=== PATIENT | male | born 1995 | race Caucasian/White ===

== ENCOUNTER → 2018-10-11 | Outpatient (CLI) | payer OTHER ==
[2018-10-12 01:03] LABS: Hemoglobin A1C 5.1 % (4.0-6.0)
== END | disposition home or self-care (01) ==
LOC: LABWHC1 16:35
PROVIDERS: ATTEND Psychiatry & Neurology Psychiatry
DX: F41.1 Generalized anxiety disorder (principal)
CPT/HCPCS: 36415; 80061; 82947; 83036

== ENCOUNTER → 2019-07-01 | Outpatient (CLI) | payer OTHER ==
--- NOTE | 2019-07-01 11:02 | XR ---
EXAMINATION TYPE: XR elbow limited RT DATE OF EXAM: 07/01/2019 CLINICAL HISTORY: Pain and limited movement for 3 weeks. TECHNIQUE: Frontal and lateral images of the right elbow are obtained. COMPARISON: None FINDINGS: There is no acute fracture/dislocation evident in the right elbow. Abnormal bowing anterio r fat pad without visualization of posterior fat pad. The overlying soft tissue appears unremarkable . IMPRESSION: Abnormal anterior fat pad raises concern for effusion. Consider orthopedic referral.
== END | disposition home or self-care (01) ==
LOC: RADXRMAIN 10:43
PROVIDERS: ATTEND Family Medicine
DX: E65 Localized adiposity (principal)

== ENCOUNTER 2021-08-12 20:37 | Emergency (ER) | payer OTHER ==
[2021-08-12 20:44] VITALS: TEMP 97.3
[2021-08-12 21:13] LABS: Appearance,Urine Clear (Clear); Bilirubin,Urine Negative (Negative); Blood,Urine Negative (Negative); Color,Urine Light Yellow; Glucose,Urine (UA) Negative (Negative); Ketones,Urine Negative (Negative); Leukocyte Esterase,Urine Negative (Negative); Nitrite,Urine Negative (Negative); PH, Urine 6.5 (5.0-8.0); Protein,Urine Negative (Negative); Specific Gravity,Urine 1.008 (1.001-1.035); Urobilinogen,Urine <2.0 mg/dL (<2.0)
[2021-08-12] MEDS ORDERED: SODIUM CHLORIDE 0.9% 1,000 ML IV STA (22:03)
[2021-08-12] MEDS ORDERED: ONDANSETRON 4 MG/2 ML VIAL IVP STA (22:03)
[2021-08-12] MEDS ORDERED: KETOROLAC 15 MG/ML 1 ML VIAL IVP STA (22:03)
--- NOTE | 2021-08-12 22:04 | ED ---
Abdominal Pain HPI - General Chief Complaint: Abdominal Pain Stated Complaint: Abdominal Pain Time Seen by Provider: 08/12/21 22:03 Source: patient, RN notes reviewed, old records reviewed Mode of arrival: ambulatory Limitations: no limitations - History of Present Illness Initial Comments: This is a 18-year-old male to the emergency department for evaluation. Patient's pain today for evaluation of abdominal pain. Patient is having at times periumbilical to right lower quadrant abdominal pain worse above his right pelvis area. Patient denies any nausea vomiting. No fevers. He was able to eat without significant discomfort did have a bowel movement today. No prior history of abdominal pain or abdominal surgery. Patient has no medications and has no medical problems patient has been going on for 5 days and progressively worse today MD Complaint: abdominal pain -: days(s) (5) Location: RLQ Radiation: RLQ Migration to: RLQ Severity: moderate Severity scale (1-10): 7 Quality: sharp Consistency: constant Improves With: nothing Worsens With: nothing Context: other (none) Associated Symptoms: nausea Treatments Prior to Arrival: other (none) - Related Data Home Medications Medication Instructions Recorded Confirmed traZODone HCL [traZODone] 100 mg PO HS 04/07/14 08/12/21 Desvenlafaxine Succinate [Pristiq 50 mg PO HS 07/22/14 08/12/21 ER] Allergies Allergy/AdvReac Type Severity Reaction Status Date / Time No Known Allergies Allergy Verified 08/12/21 22:19 Review of Systems ROS Statement: Those systems with pertinent positive or pertinent negative responses have been documented in the HPI. ROS Other: All systems not noted in ROS Statement are negative. Past Medical History Past Medical History: Seizure Disorder Additional Past Medical History / Comment(s): seizure at only/ hearing impaired both ears See Dr Marquez H&P for cardiac hx History of Any Multi-Drug Resistant Organisms: None Reported Past Surgical History: Ear Surgery Past Anesthesia/Blood Transfusion Reactions: No Reported Reaction Past Psychological History: Anxiety, Depression Smoking Status: Never smoker Past Alcohol Use History: None Reported Past Drug Use History: None Reported - Past Family History Mother Family Medical History: No Reported History General Exam Limitations: no limitations General appearance: alert, in no apparent distress Head exam: Present: atraumatic, normocephalic, normal inspection Eye exam: Present: normal appearance, PERRL, EOMI. Absent: scleral icterus, conjunctival injection, periorbital swelling ENT exam: Present: normal exam, mucous membranes moist Neck exam: Present: normal inspection. Absent: tenderness, meningismus, lymphadenopathy Respiratory exam: Present: normal lung sounds bilaterally. Absent: respiratory distress, wheezes, rales, rhonchi, stridor Cardiovascular Exam: Present: regular rate, normal rhythm, normal heart sounds. Absent: systolic murmur, diastolic murmur, rubs, gallop, clicks GI/Abdominal exam: Present: soft, tenderness (Right lower quadrant), guarding, normal bowel sounds. Absent: distended, rebound, rigid Extremities exam: Present: normal inspection, full ROM, normal capillary refill. Absent: tenderness, pedal edema, joint swelling, calf tenderness Back exam: Present: normal inspection Neurological exam: Present: alert, oriented X3, CN II-XII intact Psychiatric exam: Present: normal affect, normal mood Skin exam: Present: warm, dry, intact, normal color. Absent: rash Course Vital Signs 08/12/21 20:41 Temperature 97.3 F L Pulse Rate 100 Respiratory 20 Rate Blood Pressure 132/79 O2 Sat by Pulse 98 Oximetry - Reevaluation(s) Reevaluation #1: 08/12/21 23:13 Medical records reviewed Reevaluation #2: 08/12/21 23:13 Patient's pain is currently improved Reevaluation #3: 08/12/21 23:43 Patient informed results, questions are answered Medical Decision Making - Medical Decision Making 26 male to the emergency department for evaluation patient presents today for evaluation regards to abdominal pain right lower quadrant abdominal pain. Did have tenderness on exam with CT was negative for appendicitis. Lab values are otherwise normal aside from a mild transaminitis. Patient postictal liquid diet for 2 days nausea medication pain medication from a can be discharged - Lab Data Result diagrams: 08/12/21 22:40 08/12/21 22:40 Lab Results 08/12/21 08/12/21 08/12/21 Range/Units 21:05 22:40 22:40 WBC 9.4 (3.8-10.6) k/uL RBC 5.33 (4.30-5.90) m/uL Hgb 16.1 (13.0-17.5) gm/dL Hct 46.1 (39.0-53.0) % MCV 86.4 (80.0-100.0) fL MCH 30.2 (25.0-35.0) pg MCHC 34.9 (31.0-37.0) g/dL RDW 12.1 (11.5-15.5) % Plt Count 254 (150-450) k/uL MPV 7.4 Neutrophils % 66 % Lymphocytes % 22 % Monocytes % 6 % Eosinophils % 3 % Basophils % 1 % Neutrophils # 6.2 (1.3-7.7) k/uL Lymphocytes # 2.1 (1.0-4.8) k/uL Monocytes # 0.6 (0-1.0) k/uL Eosinophils # 0.3 (0-0.7) k/uL Basophils # 0.1 (0-0.2) k/uL Sodium 137 (137-145) mmol/L Potassium 3.7 (3.5-5.1) mmol/L Chloride 100 (98-107) mmol/L Carbon Dioxide 29 (22-30) mmol/L Anion Gap 8 mmol/L BUN 11 (9-20) mg/dL Creatinine 0.86 (0.66-1.25) mg/dL Est GFR (CKD-EPI)AfAm >90 (>60 ml/min/1.73 sqM) Est GFR (CKD-EPI)NonAf >90 (>60 ml/min/1.73 sqM) Glucose 108 H (74-99) mg/dL Calcium 9.7 (8.4-10.2) mg/dL Phosphorus 3.5 (2.5-4.5) mg/dL Magnesium 1.9 (1.6-2.3) mg/dL Total Bilirubin 1.0 (0.2-1.3) mg/dL AST 83 H (17-59) U/L ALT 190 H (4-49) U/L Alkaline Phosphatase 91 (38-126) U/L C-Reactive Protein 0.5 (<1.0) mg/dL Total Protein 7.6 (6.3-8.2) g/dL Albumin 4.5 (3.5-5.0) g/dL Amylase 42 (30-110) U/L Lipase 47 (23-300) U/L Urine Color Light Yellow Urine Appearance Clear (Clear) Urine pH 6.5 (5.0-8.0) Ur Specific [place] 1.008 (1.001-1.035) Urine Protein Negative (Negative) Urine Glucose (UA) Negative (Negative) Urine Ketones Negative (Negative) Urine Blood Negative (Negative) Urine Nitrite Negative (Negative) Urine Bilirubin Negative (Negative) Urine Urobilinogen <2.0 (<2.0) mg/dL Ur Leukocyte Esterase Negative (Negative) - Radiology Data Radiology results: report reviewed (CT abdomen and pelvis is negative for acute disease), image reviewed Disposition Clinical Impression: Abdominal pain, Gastroenteritis Disposition: HOME SELF-CARE Condition: Good Instructions (If sedation given, give patient instructions): Abdominal Pain (ED) Is patient prescribed a controlled substance at d/c from ED?: No Referrals: Rodrick Day DO [Primary Care Provider] - 1-2 days
--- NOTE | 2021-08-12 22:34 | XR ---
EXAMINATION TYPE: XR KUB DATE OF EXAM: 08/12/2021 COMPARISON: NONE HISTORY: Abdominal pain TECHNIQUE: 2 views upright FINDINGS: Bowel gas pattern is normal. There is no sign of intestinal obstruction or pneumoperitoneum . Fecal pattern is normal. There are no pathologic calcifications. IMPRESSION: Nonacute abdomen.
[2021-08-12 22:48] LABS: Basophils # (A) 0.1 k/uL (0-0.2); Basophils % (A) 1 %; Eosinophils # (A) 0.3 k/uL (0-0.7); Eosinophils % (A) 3 %; HCT 46.1 % (39.0-53.0); HGB 16.1 gm/dL (13.0-17.5); Lymphocytes # (A) 2.1 k/uL (1.0-4.8); Lymphocytes % (A) 22 %; MCH 30.2 pg (25.0-35.0); MCHC 34.9 g/dL (31.0-37.0); MCV 86.4 fL (80.0-100.0); Mean Platelet Volume 7.4; Monocytes # (A) 0.6 k/uL (0-1.0); Monocytes % (A) 6 %; Neutrophils # (A) 6.2 k/uL (1.3-7.7); Neutrophils % (A) 66 %; Platelet Count 254 k/uL (150-450); RBC 5.33 m/uL (4.30-5.90); RDW 12.1 % (11.5-15.5); WBC 9.4 k/uL (3.8-10.6)
[2021-08-12 22:59] LABS: ALT 190 U/L (4-49); AST 83 U/L (17-59); African American GFR (CKD) >90 (>60 ml/min/1.73 sqM); Albumin 4.5 g/dL (3.5-5.0); Alkaline Phosphatase 91 U/L (38-126); Amylase 42 U/L (30-110); Anion Gap 8 mmol/L; Blood Urea Nitrogen 11 mg/dL (9-20); C Reactive Protein 0.5 mg/dL (<1.0); Calcium 9.7 mg/dL (8.4-10.2); Carbon Dioxide 29 mmol/L (22-30); Chloride 100 mmol/L (98-107); Glucose 108 mg/dL (74-99); Lipase 47 U/L (23-300); Magnesium 1.9 mg/dL (1.6-2.3); Non-African American GFR(CKD) >90 (>60 ml/min/1.73 sqM); Phosphorus 3.5 mg/dL (2.5-4.5); Potassium 3.7 mmol/L (3.5-5.1); Sodium 137 mmol/L (137-145); Total Protein 7.6 g/dL (6.3-8.2)
--- NOTE | 2021-08-12 23:13 | CT ---
EXAMINATION TYPE: CT abdomen pelvis w con DATE OF EXAM: 08/12/2021 COMPARISON: None HISTORY: rlq pain CT DLP: 1134.7 mGycm Automated exposure control for dose reduction was used. CONTRAST: Performed with IV Contrast, patient injected with 100 mL of Isovue 300. Images obtained from the diaphragm to the floor the pelvis with IV contrast. Lung bases show minimal subsegmental atelectasis. There is no pleural effusion. Heart size is normal. There is no pericardial effusion. Liver spleen pancreas stomach gallbladder appear normal. The bile ducts are not dilated. There is no adrenal mass. Kidneys show satisfactory contrast opacification. There is no hydronephrosi s. Ureters are not dilated. There is no retroperitoneal adenopathy. Appendix is posterior and appears normal. There is 2 cm fat-containing umbilical hernia. Bladder distends smoothly. There is no inguin al hernia. There is no evidence of a pelvic mass. There is no mesenteric edema. There is no ascites or free air. There is no bowel obstruction. Lumbar vertebrae have normal alignment. Posterior elements are intact. There is no compression fractu re. The hip joints are intact. Sacroiliac joints are intact. IMPRESSION: Normal appendix. No acute abnormality of the abdomen and pelvis. Negative exam.
[2021-08-12] MEDS ORDERED: IBUPROFEN 600 MG STARTER PACK 4 TAB BTL PO STA (23:42)
[2021-08-12] MEDS ORDERED: ONDANSETRON 4 MG ODT STARTER PACK 2 TAB BTL PO STA (23:42)
[2021-08-13 00:15] VITALS: BP 145/59; PULSE 78; RESP 17
== END 2021-08-13 00:14 | disposition home or self-care (01) ==
LOC: EC 20:37
DX: K52.9 Noninfective gastroenteritis and colitis, unspecified (principal); F41.9 Anxiety disorder, unspecified; F32.A Depression, unspecified
CPT/HCPCS: 99284; 96374; 96375; 96361 ×2; 36415; 80053; 82150; 83690; 83735; 84100; 85025; 86140; 81003; 74018; 74177; J2405; J1885; Q9967

== ENCOUNTER 2022-11-22 01:14 | Inpatient (IN) | payer MEDICAID, OTHER ==
--- NOTE | 2022-11-22 02:24 | ED ---
Psych HPI - General Chief Complaint: Psychiatric Symptoms Stated Complaint: Suicide,Mental Health Time Seen by Provider: 11/22/22 01:32 Source: patient Mode of arrival: ambulatory Limitations: no limitations - History of Present Illness Initial Comments: This patient is 27-year-old man who presents with complaint that he is having severe depression and suicidal ideation MD Complaint: suicidal ideation, feels depressed -: week(s) Associated Psychiatric Symptoms: depression, suicidal ideation History of same: Yes Quality: getting worse Improves With: none Associated Symptoms: denies other symptoms - Related Data Previous Rx's Medication Instructions Recorded DULoxetine HCL [Cymbalta] 60 mg PO HS 30 Days #30 cap 11/25/22 traZODone HCL [Desyrel] 100 mg PO HS 30 Days #30 tab 11/25/22 Allergies Allergy/AdvReac Type Severity Reaction Status Date / Time No Known Allergies Allergy Verified 11/22/22 06:54 Review of Systems ROS Statement: Those systems with pertinent positive or pertinent negative responses have been documented in the HPI. ROS Other: All systems not noted in ROS Statement are negative. Constitutional: Denies: fever Respiratory: Denies: cough, dyspnea Cardiovascular: Denies: chest pain, palpitations Gastrointestinal: Denies: abdominal pain, vomiting Genitourinary: Denies: dysuria, hematuria Musculoskeletal: Denies: back pain Skin: Denies: rash Neurological: Denies: headache, weakness Psychiatric: Reports: depression, suicidal thoughts. Denies: auditory hallucinations, visual hallucinations, homicidal thoughts Past Medical History Past Medical History: Seizure Disorder Additional Past Medical History / Comment(s): seizure at only/ hearing impaired both ears See Dr Marquez H&P for cardiac hx History of Any Multi-Drug Resistant Organisms: None Reported Past Surgical History: Ear Surgery Past Anesthesia/Blood Transfusion Reactions: No Reported Reaction Past Psychological History: Anxiety, Depression Smoking Status: Never smoker Past Alcohol Use History: None Reported Past Drug Use History: None Reported - Past Family History Mother Family Medical History: No Reported History General Exam Limitations: no limitations General appearance: alert, in no apparent distress Head exam: Present: atraumatic, normocephalic Eye exam: Present: normal appearance. Absent: scleral icterus, conjunctival injection Neck exam: Present: normal inspection Respiratory exam: Present: normal lung sounds bilaterally. Absent: respiratory distress, wheezes, rales, rhonchi, stridor Cardiovascular Exam: Present: regular rate, normal rhythm, normal heart sounds. Absent: systolic murmur, diastolic murmur, rubs, gallop GI/Abdominal exam: Present: soft. Absent: distended, tenderness, guarding, rebound, rigid Extremities exam: Present: normal inspection, normal capillary refill. Absent: pedal edema, calf tenderness Back exam: Present: normal inspection Neurological exam: Present: alert, normal gait Psychiatric exam: Present: depressed, flat affect, suicidal ideation. Absent: agitated, anxious, homicidal ideation Skin exam: Present: warm, dry, intact, normal color. Absent: rash Course Vital Signs 11/22/22 11/22/22 01:25 06:27 Temperature 98.4 F Pulse Rate 96 Respiratory 16 20 Rate Blood Pressure 137/83 O2 Sat by Pulse 98 Oximetry Medical Decision Making - Medical Decision Making Was pt. sent in by a medical professional or institution (Dr. PA, WELLNESS PROGRAM COORDINATOR, urgent care, hospital, or retirement...) When possible be specific @ -[No] Did you speak to anyone other than the patient for history (EMS, parent, family, police, friend...)? What history was obtained from this source @ -[No] Did you review nursing and triage notes (agree or disagree)? Why? @ -[I reviewed and agree with nursing and triage notes] Were old charts reviewed (outside hosp., previous admission, EMS record, old EKG, old radiological studies, urgent care reports/EKG's, retirement records)? Report findings @ -[No old charts were reviewed] Differential Diagnosis (chest pain, altered mental status, abdominal pain women, abdominal pain men, vaginal bleeding, weakness, fever, dyspnea, syncope, headache, dizziness, GI bleed, back pain, seizure, CVA, palpatations, mental health, musculoskeletal)? @ -[Differential Mental Health Depression, anxiety, bipolar, psychosis, schizophrenia, borderline personality, situational depression, adjustment disorder, behavioral disorder, brain tumor, malingering, substance abuse, encephalopathy, medication reaction, dementia, hypothyroidism, degenerative neurologic disorder, lupus.... This is not meant to be all-inclusive list EKG interpreted by me (3pts min.). @ -[ X-rays interpreted by me (1pt min.). @ -[None done] CT interpreted by me (1pt min.). @ -[None done] U/S interpreted by me (1pt. min.). @ -[None done] What testing was considered but not performed or refused? (CT, X-rays, U/S, labs)? Why? @ -[None] What meds were considered but not given or refused? Why? @ -[None] Did you discuss the management of the patient with other professionals (professionals i.e. , PA, WELLNESS PROGRAM COORDINATOR, lab, RT, psych nurse, dialysis social worker, principal bioinformatics specialist, teacher, property disposal officer, case sealer)? Give summary @ -[Case discussed with EPS personnel who after discussing with the psychiatrist will admit for further inpatient psychiatric care Was smoking cessation discussed for >3mins.? @ -[No] Was critical care preformed (if so, how long)? @ -[No] Were there social determinants of health that impacted care today? How? (Homelessness, low income, unemployed, alcoholism, drug addiction, transportation, low edu. Level, literacy, decrease access to med. care, skilled nursing, rehab)? @ -[No] Was there de-escalation of care discussed even if they declined (Discuss DNR or withdrawal of care, Hospice)? DNR status @ -[No] What co-morbidities impacted this encounter? (DM, HTN, Smoking, COPD, CAD, Cancer, CVA, ARF, Chemo, Hep., AIDS, mental health diagnosis, sleep apnea, morbid obesity)? @ -[None] Was patient admitted / discharged? Hospital course, mention meds given and route, prescriptions, significant lab abnormalities, going to OR and other pertinent info. @ -[Admitted, as above Undiagnosed new problem with uncertain prognosis? @ -[No] Drug Therapy requiring intensive monitoring for toxicity (Heparin, Nitro, Insulin, Cardizem)? @ -[No] Were any procedures done? @ -[No] Diagnosis/symptom? @ -[Mood disorder, acute, with suicidal ideation Acute, or Chronic, or Acute on Chronic? @ -[default] Uncomplicated (without systemic symptoms) or Complicated (systemic symptoms)? @ -[uncomplicated Side effects of treatment? @ -[No] Exacerbation, Progression, or Severe Exacerbation? @ -[No] Poses a threat to life or bodily function? How? (Chest pain, [place], [place], pneumonia, PE, COPD, DKA, ARF, appy, cholecystitis, CVA, Diverticulitis, Homicidal, Suicidal, threat to staff... and all critical care pts) @ -[yes, of been treated this may progress to suicide attempt/ - Lab Data Result diagrams: 11/23/22 07:27 11/23/22 07:27 Lab Results 11/22/22 Range/Units 02:02 Coronavirus (PCR) Not Detected (Not Detectd) Disposition Clinical Impression: Mood disorder, Suicidal ideation Disposition: ADMITTED IP TO THIS HOSP Condition: Stable Is patient prescribed a controlled substance at d/c from ED?: No
[2022-11-22] MEDS ORDERED: MAG HYDROX/AL HYDROX/SIMETH 30 ML CUP PO PRN (05:55)
[2022-11-22] MEDS ORDERED: ACETAMINOPHEN TAB 325 MG TAB PO PRN (05:55)
[2022-11-22] MEDS ORDERED: MAGNESIUM HYDROXIDE 2,400 MG/10 ML CUP PO PRN (05:55)
[2022-11-22] MEDS ORDERED: LORazepam 1 MG TAB PO PRN (05:59)
[2022-11-22] MEDS ORDERED: LORazepam 2 MG/ML INJ IM PRN (05:59)
[2022-11-22] MEDS ORDERED: HALOPERIDOL LACTATE 5 MG/ML 1 ML VIAL IM PRN (06:00)
[2022-11-22] MEDS ORDERED: DULoxetine HCL 60 MG CAPSULE.DR PO SCH (09:00)
--- NOTE | 2022-11-22 12:19 | P.CONS ---
History of Present Illness - Reason for Consult Medical clearance - History of Present Illness 27-year-old male admitted the for psychiatric issues. I'm unable to interview the patient has patient is drowsy unable arousable but doesn't give me any history. REVIEW OF SYSTEMS: Unable to obtain PHYSICAL EXAMINATION: GENERAL: The patient is sleepy, not in any acute distress. Well developed, well nourished. HEENT: Pupils are round and equally reacting to light. EOMI. No scleral icterus. No conjunctival pallor. Normocephalic, atraumatic. No pharyngeal erythema. No thyromegaly. CARDIOVASCULAR: S1 and S2 present. No murmurs, rubs, or gallops. PULMONARY: Chest is clear to auscultation, no wheezing or crackles. ABDOMEN: Soft, nontender, nondistended, normoactive bowel sounds. No palpable organomegaly. MUSCULOSKELETAL: No joint swelling or deformity. EXTREMITIES: No cyanosis, clubbing, or pedal edema. NEUROLOGICAL: Gross neurological examination did not reveal any focal deficits. SKIN: No rashes. Assessment and plan -Acute psychosis management as per primary service seizure disorder patient is not on any antiseizure medications and no further history is available at this time Past Medical History Past Medical History: Seizure Disorder Additional Past Medical History / Comment(s): seizure at only/ hearing impaired both ears See Dr Marquez H&P for cardiac hx History of Any Multi-Drug Resistant Organisms: None Reported Past Surgical History: Ear Surgery Past Anesthesia/Blood Transfusion Reactions: No Reported Reaction Past Psychological History: Anxiety, Depression Smoking Status: Never smoker Past Alcohol Use History: None Reported Past Drug Use History: None Reported - Past Family History Mother Family Medical History: No Reported History Medications and Allergies Home Medications Medication Instructions Recorded Confirmed Type traZODone HCL [traZODone] 100 mg PO HS 04/07/14 08/12/21 History Desvenlafaxine Succinate [Pristiq 50 mg PO HS 07/22/14 08/12/21 History ER] Allergies Allergy/AdvReac Type Severity Reaction Status Date / Time No Known Allergies Allergy Verified 11/22/22 06:54 Physical Exam Vitals: Vital Signs Temp Pulse Pulse Resp BP BP Pulse Ox 11/22/22 06:57 97.9 F 87 15 133/89 96 11/22/22 06:27 20 11/22/22 01:25 98.4 F 96 16 137/83 98 Intake and Output 11/21/22 11/22/22 11/22/22 22:59 06:59 14:59 Other: Weight 90.917 kg
--- NOTE | 2022-11-22 12:57 | P.HP ---
Psychiatric H&P - . H&P Date: 11/22/22 History & Physical: Allergies Allergy/AdvReac Type Severity Reaction Status Date / Time No Known Allergies Allergy Verified 11/22/22 06:54 Vital Signs Temp 97.9 F 11/22/22 06:57 Pulse 87 11/22/22 06:57 Resp 15 11/22/22 06:57 BP 133/89 11/22/22 06:57 Pulse Ox 96 11/22/22 06:57 FiO2 Intake & Output 11/21/22 11/22/22 11/22/22 18:59 06:59 18:59 Weight 90.917 kg Laboratory Last Values Coronavirus (PCR) Not Detected (Not Detectd) 11/22/22 02:02 11/22/22 12:53 Psychiatric evaluation: This is a 27-year-old male who is currently hospitalized on the psychiatric unit for depression and anxiety and suicidal ideations No other specific details are available at this time No family members are available at this time An attempt was made to evaluate the patient when he was sleeping soundly. Patient was unarousable and uncooperative Patient woke up for a second and then went back to sleep and declined to answer any questions We will evaluate the patient and awake Past history personal and social history: Unable to assess Mental status examination: Unable to assess Diagnostic impression: Major depressive disorder by history Alcohol use disorder by history Stimulant/spice use disorder by history Plan: Patient was evaluated min weight Patient is currently hospitalized for further evaluation and treatment Patient will participate in on the [place] activities individual milieu group OT RT PT and pharmacotherapy The staff will continue to monitor the patient for any behavioral issues and the paternal supervision for safety Ativan and Haldol PRN for agitation/aggression -Internal Medicine consult to perform medical evaluation and physical. -NRT - nicotine patch -SW on board for discharge planning. Encourage patient to participate in groups to work on coping skills. patient is refusing rehab at this time. Roc Austin M.D. 11/22/2022
[2022-11-22] MEDS: traZODone HCL 100 MG TAB PO SCH (22:23)
[2022-11-23 06:53] VITALS: RESP 16
[2022-11-23] MEDS: DULoxetine HCL 60 MG CAPSULE.DR PO SCH ×2 (07:36→21:56)
[2022-11-23 07:49] LABS: Basophils % (A) 1 %; Eosinophils # (A) 0.3 k/uL (0-0.7); Eosinophils % (A) 3 %; HGB 15.8 gm/dL (13.0-17.5); Lymphocytes # (A) 2.5 k/uL (1.0-4.8); Lymphocytes % (A) 28 %; MCHC 33.6 g/dL (31.0-37.0); MCV 86.4 fL (80.0-100.0); Mean Platelet Volume 7.3; Monocytes # (A) 0.5 k/uL (0-1.0); Monocytes % (A) 6 %; Neutrophils # (A) 5.4 k/uL (1.3-7.7); Neutrophils % (A) 61 %; Platelet Count 313 k/uL (150-450); RBC 5.44 m/uL (4.30-5.90); RDW 12.4 % (11.5-15.5); WBC 8.9 k/uL (3.8-10.6)
[2022-11-23 08:12] LABS: ALT 90 U/L (4-49); AST 40 U/L (17-59); African American GFR (CKD) >90 (>60 ml/min/1.73 sqM); Albumin 4.7 g/dL (3.5-5.0); Alkaline Phosphatase 92 U/L (38-126); Anion Gap 10 mmol/L; Bilirubin, Delta 0.1 mg/dL (0.0-0.2); Bilirubin,Unconjugated 0.7 mg/dL (0.0-1.1); Blood Urea Nitrogen 11 mg/dL (9-20); Carbon Dioxide 28 mmol/L (22-30); Chloride 103 mmol/L (98-107); Glucose 106 mg/dL (74-99); Non-African American GFR(CKD) >90 (>60 ml/min/1.73 sqM); Potassium 3.9 mmol/L (3.5-5.1); Sodium 141 mmol/L (137-145); Total Bilirubin 0.8 mg/dL (0.2-1.3); Total Protein 7.6 g/dL (6.3-8.2)
--- NOTE | 2022-11-23 10:22 | P.PN ---
Subjective Progress Note Date: 11/23/22 Principal diagnosis: Major depressive disorder unspecified Personality disorder unspecified Subjective data: The patient says that he is of [place] descent and that his last name literally means a glove He states that he is unhappy with his name Also reports that he lives in a household 05 people that includes his mother stepfather and 2 siblings but that he always feels alone He states that he spends most of his time playing video games or reading Patient says that he does not work and did not give any reasons for not trying reports that he has loss of hearing in one of the year and that he was in special ed classes although he does not know if it was for hearing impaired or 4 in the intellectual abilities However he states that he did finish his high school patient denies any alcohol or substance use He admits that he was thinking about killing himself and that he had several different plans and ideas He denies any previous suicide attempts MENTAL STATUS EXAM: General Appearance: Patient appears disheveled and dirty patient was pleasant during the interview Behavior: Patient cooperative Speech: Patient's speech is fluent and nonpressured. Patient is highly sensitive due to his hearing problem and is distracted by any noise Mood/Affect: Patient reports his mood is anxious Suicidality/Homicidality: Patient denies having any homicidal ideation intent or plan. Denies any suicidal ideations intent or plan Perceptions: Patient denies any visual hallucinations and denies any auditory hallucinations Though content/process: There is no evidence of any delusional thought content and thought process is linear and goal-directed. Memory and concentration: AOX3, grossly intact for the purposes of this session. Judgment and insight: Impaired an impaired Diagnostic impression: Major depressive disorder chronic with acute exacerbation Rule out pervasive persistent depressive disorder/dysthymia Rule out personality disorder unspecified Management: Patient is willing to participate in on the [place] activities individual milieu group OT RT PT and pharmacotherapy As for his medications: Patient will be continued on his Cymbalta and trazodone as prescribed -Ativan and Haldol PRN for agitation/aggression thiamine, MVM for etoh use -Patient was informed of the risks, benefits and side effects of the medication and patient verbally consented to taking the medications. Patient signed med consent form and was placed in chart. -Internal Medicine consult to perform medical evaluation and physical. -SW on board for discharge planning. Encourage patient to participate in groups to work on coping skills. patient is refusing rehab at this time. claudia roahc MD 11/23/22 Objective - Vital Signs Vital signs: Vital Signs Temp 97.5 F L 11/23/22 06:52 Pulse 75 11/23/22 06:52 Resp 16 11/23/22 06:52 BP 110/55 11/23/22 06:52 Pulse Ox 96 11/22/22 06:57 FiO2 Intake & Output 11/22/22 11/23/22 11/23/22 18:59 06:59 18:59 Weight 89.9 kg - Labs CBC & Chem 7: 11/23/22 07:27 11/23/22 07:27 Labs: Abnormal Lab Results - Last 24 Hours (Table) 11/23/22 Range/Units 07:27 Glucose 106 H (74-99) mg/dL ALT 90 H (4-49) U/L
[2022-11-23] MEDS: traZODone HCL 100 MG TAB PO SCH (21:56)
--- NOTE | 2022-11-24 11:11 | P.PN ---
Progress Note - Text Progress Note Date: 11/24/22 Interval History: Patient was seen in group and was directable and agreeable to speak with typewriter repairer in the office. Currently, the patient is not reporting any suicidal or homicidal ideation, intention, and/or plan. He is not reporting any auditory or visual hallucinations. He denies any paranoia or delusions. The patient reports that he has been feeling more depressed lately after his dog had to be put down last Thursday. He is however stating that he is starting to feel better and that the medications appear to be helping along with milieu activities. The patient does describe a history of self-injurious behavior however is currently denying any traits of borderline personality disorder. He has been adherent with his medications and is not endorsing any significant side effects. He reports no medical issues or concerns. Mental Status Exam: General Appearance: Patient appears to be stated age is alert, directable, and cooperative. Patient has unkempt hair and hill. He is carrying with him an [email or web address] love craft book. Behavior: Patient is calmly seated without any agitated behavior. Speech: Patient's speech is fluent and nonpressured. Mood/Affect: Mood is improving mildly, affect is congruent and constricted. Suicidality/Homicidality: Patient denies having any suicidal or homicidal ideation intent or plan. Perceptions: Patient denies any visual hallucinations and denies any auditory hallucinations Though content/process: There is no evidence of any delusional thought content and thought process is linear and goal-directed. Memory and concentration: AOX3, grossly intact for the purposes of this session Judgment and insight: Improving mildly Vital Signs Temp 98 F 11/24/22 06:15 Pulse 97 11/24/22 06:15 Resp 16 11/24/22 06:15 BP 122/74 11/24/22 06:15 Pulse Ox 96 11/22/22 06:57 FiO2 Intake & Output 11/23/22 11/24/22 11/24/22 18:59 06:59 18:59 Weight 89.9 kg Laboratory Results - Last 24 Hours 11/23/22 07:[address] Glu mg/dL 120 Hemoglobin A1c 5.8 Assessment Major depressive disorder, recurrent, severe Alcohol use disorder Stimulant use disorder Other psychoactive substance use Plan: -Patient continues to meet criteria for inpatient psychiatric admission for symptom stabilization and safety. Patient has signed adult voluntary form and medication consent and was placed in patient's chart. -Medications: Cymbalta 60 mg by mouth at bedtime for depression Trazodone 100 mg by mouth at bedtime for insomnia -When necessary Ativan and Haldol for agitation/aggression. -SW on board for discharge planning. Encouraged the patient to participate in milieu.
[2022-11-24 13:29] LABS: Chol/HDL Ratio 6.66 Ratio; LDL Cholesterol,Calculated 143.7 mg/dL
[2022-11-24] MEDS: DULoxetine HCL 60 MG CAPSULE.DR PO SCH (20:54)
[2022-11-24] MEDS: traZODone HCL 100 MG TAB PO SCH (20:54)
[2022-11-25 06:39] VITALS: BP 119/65; PULSE 86; TEMP 98.1
--- NOTE | 2022-11-25 11:57 | P.DS ---
Providers Date of admission: 11/22/22 05:53 Expected date of discharge: 11/25/22 Attending physician: Abraham Valencia MD Consults: 11/22/22 05:55 Consult Physician Routine Consulting Provider: Becka Bernal Consult Reason/Comments: For H & P for Medical Follow Up Do you want consulting provider notified?: Yes, Notify in am Primary care physician: Rodrick Day - Discharge Diagnosis(es) (1) Major depressive disorder, recurrent severe without psychotic features Current Visit: Yes Status: Acute Priority: High (2) Alcohol use disorder Current Visit: Yes Status: Chronic Priority: Medium (3) Stimulant use disorder Current Visit: Yes Status: Chronic Priority: Medium (4) Other psychoactive substance abuse, uncomplicated Current Visit: Yes Status: Chronic Priority: Medium Hospital Course: Admission HPI: From Dr Austin on 11/22/2022: Psychiatric evaluation: This is a 27-year-old male who is currently hospitalized on the psychiatric unit for depression and anxiety and suicidal ideations No other specific details are available at this time No family members are available at this time An attempt was made to evaluate the patient when he was sleeping soundly. Patient was unarousable and uncooperative Patient woke up for a second and then went back to sleep and declined to answer any questions We will evaluate the patient and awake From 11/23/2022: Also reports that he lives in a household 05 people that includes his mother stepfather and 2 siblings but that he always feels alone He states that he spends most of his time playing video games or reading Patient says that he does not work and did not give any reasons for not trying reports that he has loss of hearing in one of the year and that he was in special ed classes although he does not know if it was for hearing impaired or 4 in the intellectual abilities However he states that he did finish his high school patient denies any alcohol or substance use He admits that he was thinking about killing himself and that he had several different plans and ideas He denies any previous suicide attempts Hospital course: Upon admission to the unit patient was initially uncooperative and remain primarily isolative and sedated in his room. Patient was however directable and agreeable to commence treatment. Patient got along well with other patients on the unit and followed unit protocol. Patient was compliant with the medications and denied any side effects throughout hospital course. Patient was started on Cymbalta and trazodone for depression. Patient spoke of his stressors and engag ed in therapy both group and individual. Patient was also seen by medical team for history and physical exam. Throughout the course of the hospitalization patient gradually improved with regards to mood and sleep and became future oriented with improved insight and judgment. On the day of discharge patient denied any suicidal or homicidal ideations intent or plan denied any auditory or visual hallucinations. Patient endorsed wanting to live for his health and family. The patient denied any access to guns or weapons as his family was able to confirm that they locked up the firearms in the home. Patient denied any paranoia and did not endorse any delusions. Patient does have a significant history of substance abuse however was counseled on abstaining from all substances including tobacco, alcohol and marijuana. Patient was offered however declined inpatient substance-abuse rehab. Patient was also counseled on the medications and need for regular compliance and was encouraged to follow-up with their outpatient appointment for mental health and also for primary care. Prior to discharge a family meeting will be arranged by social sciences professor to answer any questions and ensure safety upon discharge. He reports no medical issues or concerns. He denies any chest pain, shortness of breath, palpitations, anesthesia, or tardive dyskinesia. Mental status exam: General Appearance: Patient appears to be stated age is alert, pleasant, and cooperative. Patient is in no acute distress and has fair hygiene and grooming Behavior: Patient is calmly seated without any agitated behavior. Speech: Patient's speech is fluent and nonpressured. Mood/Affect: Patient reports their mood is "much better", affect is congruent and euthymic to bright. Suicidality/Homicidality: Patient denies having any suicidal or homicidal ideation intent or plan. Perceptions: Patient denies any auditory or visual hallucinations. Though content/process: There is no evidence of any delusional thought content and thought process is linear and goal-directed. And is future oriented. Memory and concentration: AOX3, grossly intact for the purposes of this session. Can spell "WORLD" backwards correctly. Judgment and insight: Improved Impression: Major depressive disorder, recurrent, severe Alcohol use disorder Stimulant use disorder Other psychoactive substance use Plan: -Continue with discharge today as patient has improved and stabilized psychiatrically and is not currently an imminent threat to himself and/or others. Patient will remain at chronically elevated risk for harm to self and/or others due to his impulsivity and polysubstance abuse. -Continue medications: Cymbalta 60 mg by mouth at bedtime for depression Trazodone 100 mg by mouth at bedtime for insomnia -Patient was counseled on the need for medication compliance and appropriate follow-up at mental health and also primary care for medical issues. Patient verbalized understanding and agreed. -Social work to arrange for and conduct family meeting to ensure safety upon discharge and answer any questions/concerns. Social work also to arrange for patients follow up appointments with [facility] for psychiatric care along with follow up with primary care provider. -Patient counseled on abstaining from recreational drugs and marijuana and alcohol. Was informed/educated on the adverse effects on their physical and mental health. Patient verbally agreed and understood. Patient was offered substance abuse treatment however declined at this time. -Patient was instructed to return to the hospital or seek immediate medical care if their psychiatric or medical symptoms do worsen or reoccur. -Psychoeducation and supportive therapy provided to patient. Risks and benefits of pharmacological treatment versus the risks and benefits of nontreatment weighed and discussed. Informed consent discussion held. Common side effects of psychotropics discussed such as, but not limited to headache, GI disturbance, sexual dysfunction, movement disorders, sedation, and orthostatic hypotension. Life threatening and blackbox warnings of prescribed medications also discussed. Potential risks of operating a vehicle or heavy machinery discussed with patient at length. Advised on importance of compliance and a reliable and responsible manner. Patient advised to review FDA consumer labeling of all medications prior to taking. Patient verbalized understanding of potential risks, and agrees with current treatment plan. Patient advised to medically contact physician/emergency personnel if any acute changes in condition occur. Vital Signs Temp 98.1 F 11/25/22 06:00 Pulse 86 11/25/22 06:00 Resp 16 11/25/22 06:00 BP 119/65 11/25/22 06:00 Pulse Ox 97 11/25/22 06:00 FiO2 Laboratory Results WBC 8.9 k/uL (3.8-10.6) 11/23/22 07:27 RBC 5.44 m/uL (4.30-5.90) 11/23/22 07:27 Hgb 15.8 gm/dL (13.0-17.5) 11/23/22 07:27 Hct 47.0 % (39.0-53.0) 11/23/22 07:27 MCV 86.4 fL (80.0-100.0) 11/23/22 07:27 MCH 29.0 pg (25.0-35.0) 11/23/22 07:27 MCHC 33.6 g/dL (31.0-37.0) 11/23/22 07:27 RDW 12.4 % (11.5-15.5) 11/23/22 07:27 Plt Count 313 k/uL (150-450) 11/23/22 07:27 MPV 7.3 11/23/22 07:27 Neutrophils % 61 % 11/23/22 07:27 Lymphocytes % 28 % 11/23/22 07:27 Monocytes % 6 % 11/23/22 07:27 Eosinophils % 3 % 11/23/22 07:27 Basophils % 1 % 11/23/22 07:27 Neutrophils # 5.4 k/uL (1.3-7.7) 11/23/22 07:27 Lymphocytes # 2.5 k/uL (1.0-4.8) 11/23/22 07:27 Monocytes # 0.5 k/uL (0-1.0) 11/23/22 07:27 Eosinophils # 0.3 k/uL (0-0.7) 11/23/22 07:27 Basophils # 0.0 k/uL (0-0.2) 11/23/22 07:27 Sodium 141 mmol/L (137-145) 11/23/22 07:27 Potassium 3.9 mmol/L (3.5-5.1) 11/23/22 07:27 Chloride 103 mmol/L (98-107) 11/23/22 07:27 Carbon Dioxide 28 mmol/L (22-30) 11/23/22 07:27 Anion Gap 10 mmol/L 11/23/22 07:27 BUN 11 mg/dL (9-20) 11/23/22 07:27 Creatinine 0.90 mg/dL (0.66-1.25) 11/23/22 07:27 Est GFR (CKD-EPI)AfAm >90 (>60 ml/min/1.73 sqM) 11/23/22 07:27 Est GFR (CKD-EPI)NonAf >90 (>60 ml/min/1.73 sqM) 11/23/22 07:27 Glucose 106 mg/dL (74-99) H 11/23/22 07:[address] Glu mg/dL 120 mg/dL 11/23/22 07:27 Hemoglobin A1c 5.8 % 11/23/22 07:27 Calcium 9.0 mg/dL (8.4-10.2) 11/23/22 07:27 Total Bilirubin 0.8 mg/dL (0.2-1.3) 11/23/22 07:27 Conjugated Bilirubin 0.0 mg/dL (0.0-0.3) 11/23/22 07:27 Unconjugated Bilirubin 0.7 mg/dL (0.0-1.1) 11/23/22 07:27 Delta Bilirubin 0.1 mg/dL (0.0-0.2) 11/23/22 07:27 AST 40 U/L (17-59) 11/23/22 07:27 ALT 90 U/L (4-49) H 11/23/22 07:27 Alkaline Phosphatase 92 U/L (38-126) 11/23/22 07:27 Total Protein 7.6 g/dL (6.3-8.2) 11/23/22 07:27 Albumin 4.7 g/dL (3.5-5.0) 11/23/22 07:27 Triglycerides 195.00 mg/dL H 11/23/22 07:27 Cholesterol 215.00 mg/dL H 11/23/22 07:27 LDL Cholesterol, Calc 143.7 mg/dL H 11/23/22 07:27 VLDL Cholesterol, Calc 39.00 mg/dL 11/23/22 07:27 HDL Cholesterol 32.30 mg/dL L 11/23/22 07:27 Cholesterol/HDL Ratio 6.66 Ratio 11/23/22 07:27 TSH 2.220 mIU/L (0.465-4.680) 11/23/22 07:27 Coronavirus (PCR) Not Detected (Not Detectd) 11/22/22 02:02 Allergies Allergy/AdvReac Type Severity Reaction Status Date / Time No Known Allergies Allergy Verified 11/22/22 06:54 Patient Condition at Discharge: Stable Plan - Discharge Summary Discharge Rx Participant: Yes New Discharge Prescriptions: No Action traZODone HCL [traZODone] 100 mg PO HS Desvenlafaxine Succinate [Pristiq ER] 50 mg PO HS Discharge Medication List traZODone HCL [traZODone] 100 mg PO HS 04/07/14 [History] Desvenlafaxine Succinate [Pristiq ER] 50 mg PO HS 07/22/14 [History] Follow up Appointment(s)/Referral(s): [facility] [Outside] - 11/27/22 11:30 am (11/27/2022 11:30AM - 12:30PM FIDEL LEBLANC 12/02/2022 10:00AM - 10:30AM KAROL LAW ) Rodrick Day, [Primary Care Provider] - 1-2 days Activity/Diet/Wound Care/Special Instructions: Avoid the use of street drugs and alcohol. Take all medications as prescribed. When you are in need of refills on your medications, please contact your medical provider and/or outpatient psychiatrist to have this done. Please go to scheduled outpatient appointments for aftercare treatment. If symptoms return or become worse, call the crisis line at and/or go to the nearest emergency room for evaluation.
== END 2022-11-25 12:44 | disposition home or self-care (01) | DRG 751 ==
LOC: EC 01:14 → 3MHU 05:53
PROVIDERS: ADMIT Psychiatry & Neurology Psychiatry; ATTEND Psychiatry & Neurology Psychiatry
DX: F33.2 Major depressive disorder, recurrent severe without psychotic features (principal); R45.851 Suicidal ideations; F60.9 Personality disorder, unspecified; F15.10 Other stimulant abuse, uncomplicated; F19.10 Other psychoactive substance abuse, uncomplicated; Z20.822 Contact with and (suspected) exposure to COVID-19; F10.10 Alcohol abuse, uncomplicated; G47.00 Insomnia, unspecified; F41.9 Anxiety disorder, unspecified; H91.8X3 Other specified hearing loss, bilateral; Z79.899 Other long term (current) drug therapy; Z91.52 Personal history of nonsuicidal self-harm; Z71.51 Drug abuse counseling and surveillance of drug abuser; Z71.41 Alcohol abuse counseling and surveillance of alcoholic; Z71.89 Other specified counseling; Z56.0 Unemployment, unspecified
CPT/HCPCS: 80053; 80061; 82248; 83036; 84443; 85025; 87635; 99285

== ENCOUNTER 2023-01-21 00:27 | Emergency (ER) | payer OTHER ==
[2023-01-21 00:41] VITALS: RESP 18; TEMP 98.1
[2023-01-21] MEDS ORDERED: SODIUM CHLORIDE 0.9% 1,000 ML IV ONE (01:09)
--- NOTE | 2023-01-21 01:21 | ED ---
Altered Mental Status HPI - General Chief Complaint: Altered Mental Status Stated Complaint: Disoriented and confused Time Seen by Provider: 01/21/23 00:49 Source: patient, family Mode of arrival: ambulatory Limitations: no limitations - History of Present Illness Initial Comments: 27-year-old male presenting with chief complaint of altered mental status. The patient's father at bedside reports that the patient woke him up this evening and did not know where he was. He states that the patient is speaking at a very slow pace which is not normal for him. He seems to be very confused according to the father. Patient is complaining of a dry mouth. He denies any drug or alcohol use. He denies chest pain, difficulty breathing, abdominal pain, rod[place] sea, vomiting, dysuria, hematuria, fever, chills, palpitations, numbness, tingling. Of note patient was recently in residential for the last 5 days, he did not have his trazodone or Cymbalta during those days and he resumed taking them today. - Related Data Previous Rx's Medication Instructions Recorded DULoxetine HCL [Cymbalta] 60 mg PO HS 30 Days #30 cap 11/25/22 traZODone HCL [Desyrel] 100 mg PO HS 30 Days #30 tab 11/25/22 Allergies Allergy/AdvReac Type Severity Reaction Status Date / Time No Known Allergies Allergy Verified 01/21/23 00:35 Review of Systems ROS Statement: Those systems with pertinent positive or pertinent negative responses have been documented in the HPI. ROS Other: All systems not noted in ROS Statement are negative. Past Medical History Past Medical History: Seizure Disorder Additional Past Medical History / Comment(s): seizure at only/ hearing impaired both ears See Dr Marquez H&P for cardiac hx History of Any Multi-Drug Resistant Organisms: None Reported Past Surgical History: Ear Surgery Past Anesthesia/Blood Transfusion Reactions: No Reported Reaction Past Psychological History: Anxiety, Depression Smoking Status: Never smoker Past Alcohol Use History: None Reported Past Drug Use History: None Reported - Past Family History Mother Family Medical History: No Reported History General Exam Limitations: altered mental status General appearance: alert, obtunded Head exam: Present: atraumatic, normocephalic, normal inspection Eye exam: Present: normal appearance, PERRL, EOMI. Absent: scleral icterus, conjunctival injection, periorbital swelling Pupils: Present: normal accommodation Neck exam: Present: normal inspection, full ROM Respiratory exam: Present: normal lung sounds bilaterally. Absent: respiratory distress, wheezes, rales, rhonchi, stridor Cardiovascular Exam: Present: regular rate, normal rhythm, normal heart sounds. Absent: systolic murmur, diastolic murmur, rubs, gallop, clicks Neurological exam: Present: alert, altered Psychiatric exam: Present: flat affect Skin exam: Present: warm, dry, intact, normal color. Absent: rash Course Vital Signs 01/21/23 01/21/23 00:35 05:10 Temperature 98.1 F Pulse Rate 80 76 Respiratory 18 18 Rate Blood Pressure 143/90 132/78 O2 Sat by Pulse 98 98 Oximetry Medical Decision Making - Medical Decision Making Was pt. sent in by a medical professional or institution (, PA, PRINTING MANAGER, urgent care, hospital, or intermediate...) When possible be specific @ -No Did you speak to anyone other than the patient for history (EMS, parent, family, police, friend...)? What history was obtained from this source @ -History supplemented by father Did you review nursing and triage notes (agree or disagree)? Why? @ -I reviewed and agree with nursing and triage notes Were old charts reviewed (outside hosp., previous admission, EMS record, old EKG, old radiological studies, urgent care reports/EKG's, intermediate records)? Report findings @ -No old charts were reviewed Differential Diagnosis (chest pain, altered mental status, abdominal pain women, abdominal pain men, vaginal bleeding, weakness, fever, dyspnea, syncope, headache, dizziness, GI bleed, back pain, seizure, CVA, palpatations, mental health, musculoskeletal)? @ -MDM Differential Altered Mental Status: Hypoglycemia, DKA, hypercapnia, ETOH, overdose, CO poisoning, trauma, myxedema coma, HTN encephalopathy, infection, encephalitis, psychosis, intercranial hemorrhage, hepatic encephalopathy, meningitis, CVA this is not meant to be an all-inclusive list EKG interpreted by me (3pts min.). @ -Sinus rhythm ventricular rate 81. AZ interval 141. QRS 108. QT 340. QTC 377. X-rays interpreted by me (1pt min.). @ -None done CT interpreted by me (1pt min.). @ -None done U/S interpreted by me (1pt. min.). @ -None done What testing was considered but not performed or refused? (CT, X-rays, U/S, labs)? Why? @ -None What meds were considered but not given or refused? Why? @ -None Did you discuss the management of the patient with other professionals (professionals i.e. , PA, PRINTING MANAGER, lab, RT, psych nurse, social services technician, mat man, teacher, correctional officer lieutenant, outpatient case manager)? Give summary @ -No Was smoking cessation discussed for >3mins.? @ -No Was critical care preformed (if so, how long)? @ -No Were there social determinants of health that impacted care today? How? (Homelessness, low income, unemployed, alcoholism, drug addiction, transportation, low edu. Level, literacy, decrease access to med. care, residential, rehab)? @ -No Was there de-escalation of care discussed even if they declined (Discuss DNR or withdrawal of care, Hospice)? DNR status @ -No What co-morbidities impacted this encounter? (DM, HTN, Smoking, COPD, CAD, Cancer, CVA, ARF, Chemo, Hep., AIDS, mental health diagnosis, sleep apnea, morbid obesity)? @ -None Was patient admitted / discharged? Hospital course, mention meds given and route, prescriptions, significant lab abnormalities, going to OR and other pertinent info. @ -27-year-old male presented with chief complaint of altered mental status. Started this evening. The patient's father states that the patient has been in residential for the last 5 days and has not had his trazodone her Cymbalta and resume taking it today when he got home. Physical examination there are no focal neurological deficits, patient appears to be speaking at a somewhat slower pace. Lab work requires no action, negative urine drug screen. On reassessment patient is returning to his baseline, father states the his symptoms have improved. Symptoms were likely due to sudden withdrawal of Cymbalta and trazodone and recently resuming. He is instructed to follow-up with his psychiatrist and therapist, he has upcoming appointments. Follow-up with PCP. Report back to ER with any new or worsening symptoms. Discussed return parameters and answered all questions. Patient conveyed verbal understanding and agreed to the plan. I discussed this case in detail with my attending Dr. Barahona Undiagnosed new problem with uncertain prognosis? @ -No Drug Therapy requiring intensive monitoring for toxicity (Heparin, Nitro, Insulin, Cardizem)? @ -No Were any procedures done? @ -No Diagnosis/symptom? @ -Acute delirium, medication withdrawal Acute, or Chronic, or Acute on Chronic? @ -Acute Uncomplicated (without systemic symptoms) or Complicated (systemic symptoms)? @ -Complicated Side effects of treatment? @ -No Exacerbation, Progression, or Severe Exacerbation? @ -No Poses a threat to life or bodily function? How? (Chest pain, [place], [place], pneumonia, PE, COPD, DKA, ARF, appy, cholecystitis, CVA, Diverticulitis, Homicidal, Suicidal, threat to staff... and all critical care pts) @ -No - Lab Data Result diagrams: 01/21/23 03:20 01/21/23 01:35 Lab Results 01/21/23 01/21/23 01/21/23 Range/Units 01:35 01:35 01:35 WBC (3.8-10.6) k/uL RBC (4.30-5.90) m/uL Hgb (13.0-17.5) gm/dL Hct (39.0-53.0) % MCV (80.0-100.0) fL MCH (25.0-35.0) pg MCHC (31.0-37.0) g/dL RDW (11.5-15.5) % Plt Count (150-450) k/uL MPV Neutrophils % % Lymphocytes % % Monocytes % % Eosinophils % % Basophils % % Neutrophils # (1.3-7.7) k/uL Lymphocytes # (1.0-4.8) k/uL Monocytes # (0-1.0) k/uL Eosinophils # (0-0.7) k/uL Basophils # (0-0.2) k/uL PT (9.0-12.0) sec INR (<1.2) APTT (22.0-30.0) sec Sodium 139 (137-145) mmol/L Potassium 4.6 (3.5-5.1) mmol/L Chloride 101 (98-107) mmol/L Carbon Dioxide 29 (22-30) mmol/L Anion Gap 9 mmol/L BUN 12 (9-20) mg/dL Creatinine 0.72 (0.66-1.25) mg/dL Est GFR (CKD-EPI)AfAm >90 (>60 ml/min/1.73 sqM) Est GFR (CKD-EPI)NonAf >90 (>60 ml/min/1.73 sqM) Glucose 101 H (74-99) mg/dL Calcium 9.5 (8.4-10.2) mg/dL Total Bilirubin 1.0 (0.2-1.3) mg/dL AST 51 (17-59) U/L ALT 79 H (4-49) U/L Alkaline Phosphatase 94 (38-126) U/L Ammonia 28 (<30) umol/L Troponin I 0.022 (0.000-0.034) ng/mL Total Protein 8.1 (6.3-8.2) g/dL Albumin 4.6 (3.5-5.0) g/dL Urine Color Urine Appearance (Clear) Urine pH (5.0-8.0) Ur Specific [place] (1.001-1.035) Urine Protein (Negative) Urine Glucose (UA) (Negative) Urine Ketones (Negative) Urine Blood (Negative) Urine Nitrite (Negative) Urine Bilirubin (Negative) Urine Urobilinogen (<2.0) mg/dL Ur Leukocyte Esterase (Negative) Urine WBC (0-5) /hpf Calcium Oxalate Crystal (None) /hpf Amorphous Sediment (None) /hpf Urine Mucus (None) /hpf Urine Opiates Screen (NotDetected) Ur Oxycodone Screen (NotDetected) Urine Methadone Screen (NotDetected) Ur Propoxyphene Screen (NotDetected) Ur Barbiturates Screen (NotDetected) U Tricyclic Antidepress (NotDetected) Ur Phencyclidine Scrn (NotDetected) Ur Amphetamines Screen (NotDetected) U Methamphetamines Scrn (NotDetected) U Benzodiazepines Scrn (NotDetected) Urine Cocaine Screen (NotDetected) U Marijuana (THC) Screen (NotDetected) Serum Alcohol <10 mg/dL 01/21/23 01/21/23 01/21/23 Range/Units 03:20 03:20 04:08 WBC 8.9 (3.8-10.6) k/uL RBC 5.18 (4.30-5.90) m/uL Hgb 16.0 (13.0-17.5) gm/dL Hct 43.9 (39.0-53.0) % MCV 84.7 (80.0-100.0) fL MCH 31.0 (25.0-35.0) pg MCHC 36.6 (31.0-37.0) g/dL RDW 12.7 (11.5-15.5) % Plt Count 246 (150-450) k/uL MPV 7.6 Neutrophils % 56 % Lymphocytes % 32 % Monocytes % 7 % Eosinophils % 3 % Basophils % 1 % Neutrophils # 4.9 (1.3-7.7) k/uL Lymphocytes # 2.9 (1.0-4.8) k/uL Monocytes # 0.6 (0-1.0) k/uL Eosinophils # 0.3 (0-0.7) k/uL Basophils # 0.1 (0-0.2) k/uL PT 10.8 (9.0-12.0) sec INR 1.0 (<1.2) APTT 24.0 (22.0-30.0) sec Sodium (137-145) mmol/L Potassium (3.5-5.1) mmol/L Chloride (98-107) mmol/L Carbon Dioxide (22-30) mmol/L Anion Gap mmol/L BUN (9-20) mg/dL Creatinine (0.66-1.25) mg/dL Est GFR (CKD-EPI)AfAm (>60 ml/min/1.73 sqM) Est GFR (CKD-EPI)NonAf (>60 ml/min/1.73 sqM) Glucose (74-99) mg/dL Calcium (8.4-10.2) mg/dL Total Bilirubin (0.2-1.3) mg/dL AST (17-59) U/L ALT (4-49) U/L Alkaline Phosphatase (38-126) U/L Ammonia (<30) umol/L Troponin I (0.000-0.034) ng/mL Total Protein (6.3-8.2) g/dL Albumin (3.5-5.0) g/dL Urine Color Yellow Urine Appearance Cloudy (Clear) Urine pH 5.5 (5.0-8.0) Ur Specific [place] 1.028 (1.001-1.035) Urine Protein Trace H (Negative) Urine Glucose (UA) Negative (Negative) Urine Ketones Trace H (Negative) Urine Blood Negative (Negative) Urine Nitrite Negative (Negative) Urine Bilirubin 1+ H (Negative) Urine Urobilinogen 2.0 (<2.0) mg/dL Ur Leukocyte Esterase Negative (Negative) Urine WBC 1 (0-5) /hpf Calcium Oxalate Crystal 3 (None) /hpf Amorphous Sediment Moderate H (None) /hpf Urine Mucus Few H (None) /hpf Urine Opiates Screen Not Detected (NotDetected) Ur Oxycodone Screen Not Detected (NotDetected) Urine Methadone Screen Not Detected (NotDetected) Ur Propoxyphene Screen Not Detected (NotDetected) Ur Barbiturates Screen Not Detected (NotDetected) U Tricyclic Antidepress Not Detected (NotDetected) Ur Phencyclidine Scrn Not Detected (NotDetected) Ur Amphetamines Screen Not Detected (NotDetected) U Methamphetamines Scrn Not Detected (NotDetected) U Benzodiazepines Scrn Not Detected (NotDetected) Urine Cocaine Screen Not Detected (NotDetected) U Marijuana (THC) Screen Not Detected (NotDetected) Serum Alcohol mg/dL Disposition Clinical Impression: Medication withdrawal, Acute delirium Disposition: HOME SELF-CARE Condition: Good Instructions (If sedation given, give patient instructions): Altered Mental Status (ED) Additional Instructions: Follow up with psychiatrist. Report back to ER with any new or worsening symptoms. Is patient prescribed a controlled substance at d/c from ED?: No Referrals: Rodrick Day DO [Primary Care Provider] - 1-2 days Time of Disposition: 04:44
[2023-01-21 02:05] LABS: ALT 79 U/L (4-49); AST 51 U/L (17-59); African American GFR (CKD) >90 (>60 ml/min/1.73 sqM); Albumin 4.6 g/dL (3.5-5.0); Alcohol <10 mg/dL; Alkaline Phosphatase 94 U/L (38-126); Anion Gap 9 mmol/L; Blood Urea Nitrogen 12 mg/dL (9-20); Calcium 9.5 mg/dL (8.4-10.2); Carbon Dioxide 29 mmol/L (22-30); Chloride 101 mmol/L (98-107); Glucose 101 mg/dL (74-99); Non-African American GFR(CKD) >90 (>60 ml/min/1.73 sqM); Sodium 139 mmol/L (137-145); Total Protein 8.1 g/dL (6.3-8.2)
[2023-01-21 02:32] LABS: Potassium 4.6 mmol/L (3.5-5.1)
[2023-01-21 03:45] LABS: Basophils # (A) 0.1 k/uL (0-0.2); Basophils % (A) 1 %; Eosinophils # (A) 0.3 k/uL (0-0.7); Eosinophils % (A) 3 %; HCT 43.9 % (39.0-53.0); Lymphocytes # (A) 2.9 k/uL (1.0-4.8); Lymphocytes % (A) 32 %; MCHC 36.6 g/dL (31.0-37.0); MCV 84.7 fL (80.0-100.0); Mean Platelet Volume 7.6; Monocytes # (A) 0.6 k/uL (0-1.0); Monocytes % (A) 7 %; Neutrophils # (A) 4.9 k/uL (1.3-7.7); Neutrophils % (A) 56 %; Platelet Count 246 k/uL (150-450); RBC 5.18 m/uL (4.30-5.90); RDW 12.7 % (11.5-15.5); WBC 8.9 k/uL (3.8-10.6)
[2023-01-21 03:50] LABS: Prothrombin Time 10.8 sec (9.0-12.0)
[2023-01-21 04:31] LABS: Appearance,Urine Cloudy (Clear); Bilirubin,Urine 1+ (Negative); Blood,Urine Negative (Negative); Color,Urine Yellow; Glucose,Urine (UA) Negative (Negative); Ketones,Urine Trace (Negative); Leukocyte Esterase,Urine Negative (Negative); Nitrite,Urine Negative (Negative); PH, Urine 5.5 (5.0-8.0); Protein,Urine Trace (Negative); Specific Gravity,Urine 1.028 (1.001-1.035)
[2023-01-21 04:39] LABS: Amphetamine Screen,Urine Not Detected (NotDetected); Barbiturate Screen,Urine Not Detected (NotDetected); Benzodiazepines Screen,Urine Not Detected (NotDetected); Cocaine Screen,Urine Not Detected (NotDetected); Methadone Screen, Urine Not Detected (NotDetected); Opiate Screen,Urine Not Detected (NotDetected); Oxycodone Screen, Urine Not Detected (NotDetected); Phencyclidine Screen,Urine Not Detected (NotDetected); Tricyclic Antidepressant,Urine Not Detected (NotDetected); Urn Cannabinoid Scrn Not Detected (NotDetected)
[2023-01-21 04:41] LABS: WBC,Urine 1 /hpf (0-5)
[2023-01-21 04:42] LABS: Amorphous Sediment,Urine Moderate /hpf; Calcium Oxalate Crystals,Urine 3 /hpf; Mucus,Urine Few /hpf
[2023-01-21 05:11] VITALS: BP 132/78; PULSE 76
== END 2023-01-21 05:11 | disposition home or self-care (01) ==
LOC: EC 00:27
DX: F19.130 Other psychoactive substance abuse with withdrawal, uncomplicated (principal); R41.0 Disorientation, unspecified; I10 Essential (primary) hypertension; I21.9 Acute myocardial infarction, unspecified; I25.10 Atherosclerotic heart disease of native coronary artery without angina pectoris; J44.9 Chronic obstructive pulmonary disease, unspecified; E11.10 Type 2 diabetes mellitus with ketoacidosis without coma; Z86.59 Personal history of other mental and behavioral disorders
CPT/HCPCS: 36415; 93005; 80053; 82140; 84484; 85025; 85610; 85730; 81001; 80306; 99285; 96360; G0480; 80320

== ENCOUNTER → 2023-02-26 | Outpatient (CLI) | payer OTHER ==
[2023-02-26 20:15] LABS: Albumin 4.6 d/dL (3.8-4.9)
[2023-02-26 21:03] LABS: Ceruloplasmin 21.1 mg/dL (20.0-60.0)
[2023-02-26 21:05] LABS: % Iron Saturation 20.62 (15.00-50.00); ALT 89 U/L (10-49); AST 31 U/L (14-35); Albumin 4.7 d/dL (3.8-4.9); Albumin/Globulin Ratio 1.88 Ratio (1.60-3.17); Alkaline Phosphatase 130 U/L (41-126); BUN/Creat Ratio 6.73 Ratio (12.00-20.00); Blood Urea Nitrogen 7.4 mg/dL (9.0-27.0); Calcium 9.4 mg/dL (8.7-10.3); Carbon Dioxide 29.1 mmol/L (21.6-31.8); Chloride 101 mmol/L (96-109); Globulin 2.5 d/dL (1.6-3.3); Glucose 144 mg/dL (70-110); Iron 67 UG/DL (65-175); Potassium 4.4 mmol/L (3.5-5.5); Sodium 142 mmol/L (135-145); Total Bilirubin 0.4 mg/dL (0.3-1.2); Total Iron Binding Capacity 325 UG/DL (228-460); Total Protein 7.2 d/dL (6.2-8.2)
[2023-02-26 22:42] LABS: Basophils # (A) 0.05 X 10*3/uL (0.00-0.10); Basophils % (A) 0.7 %; Eosinophils # (A) 0.22 X 10*3/uL (0.04-0.35); Eosinophils % (A) 3.3 %; HGB 15.7 d/dL (13.0-17.0); Lymphocytes # (A) 2.18 X 10*3/uL (0.90-5.00); Lymphocytes % (A) 32.4 %; MCH 28.4 pg (27.0-32.0); MCHC 32.7 d/dL (32.0-37.0); MCV 86.8 FL (80.0-97.0); Mean Platelet Volume 10.8 FL (9.5-12.2); Monocytes # (A) 0.53 X 10*3/uL (0.20-1.00); Monocytes % (A) 7.9 %; NRBC Per 100 WBC 0 X 10*3/uL (0.00-0.01); Neutrophils # (A) 3.72 X 10*3/uL (1.80-7.70); Neutrophils % (A) 55.3 %; Platelet Count 258 X 10*3/uL (140-440); RBC 5.53 X 10*6/uL (4.40-5.60); RDW 11.9 % (11.5-14.5); WBC 6.73 X 10*3/uL (4.50-10.00)
[2023-02-28 11:24] LABS: Gamma Globulin 1.08 d/dL (0.70-1.50)
== END | disposition home or self-care (01) ==
LOC: LABWHC1 13:49
PROVIDERS: ATTEND Internal Medicine Gastroenterology
DX: R74.8 Abnormal levels of other serum enzymes (principal)
CPT/HCPCS: 36415; 80053; 82103; 82390; 82728; 83036; 83516; 83540; 83550; 84165; 85025

== ENCOUNTER → 2023-02-26 | Outpatient (CLI) | payer OTHER ==
--- NOTE | 2023-02-26 15:46 | US ---
EXAMINATION TYPE: US liver DATE OF EXAM: 02/26/2023 COMPARISON: None CLINICAL INDICATION: Male, 27 years old with history of R74.8 ABNORMAL LEVELS OF OTHER SERUM ENZYMES; elevated LFTs TECHNIQUE: Multiple sonographic images of the right upper quadrant are obtained. FINDINGS: EXAM MEASUREMENTS: Liver Length: 15.3 cm Gallbladder Wall: 0.16 cm CBD: 0.41 cm Right Kidney: 10.5x4.8x4.6 cm CARBON CUTTER NOTES: Exam slightly limited by bowel and body habitus Pancreas: Detailed assessment is limited due to bowel gas. No definite abnormality seen. Liver: Slightly limited by bowel gas and rib shadows. Diffuse increased echogenicity. Gallbladder: two non-mobile echogenic areas noted at fundus (0.5cm) and body (0.4cm) of GB Evidence for sonographic Hewitt's sign: No CBD: wnl Right Kidney: wnl IMPRESSION: 1. Moderate hepatic steatosis. Correlate with LFTs, lipid profile, patient risk factors. 2. Two nonmobile nodules along the gallbladder wall measuring 5 mm and 4 mm. Gallbladder wall polyps are possible. Recommend 6 month follow-up ultrasound to reassess. 3. No biliary ductal dilatation.
== END | disposition home or self-care (01) ==
LOC: RADUSWWP 08:19
PROVIDERS: ATTEND Internal Medicine Gastroenterology
DX: K76.0 Fatty (change of) liver, not elsewhere classified (principal); R74.8 Abnormal levels of other serum enzymes
CPT/HCPCS: 76705

== ENCOUNTER → 2024-10-04 | Outpatient (CLI) | payer OTHER ==
--- NOTE | 2024-10-04 08:34 | US ---
EXAMINATION TYPE: US gallbladder DATE OF EXAM: 10/04/2024 COMPARISON: NONE CLINICAL INDICATION: Male, 29 years old with history of K82.4 CHOLESTEROLOSIS GALLBLADDER; Gallbladde r polyps pain and nausea. TECHNIQUE: Grayscale and color Doppler imaging of the right upper quadrant was performed. FINDINGS: EXAM MEASUREMENTS: Liver Length: 17.1 cm Gallbladder Wall: .2 cm CBD: .3 cm Right Kidney: 10.5 x 4.0 x 4.5 cm ACCOUNTING TECHNICIAN NOTES: Pancreas: Tail obscured by overlying bowel gas echogenic Liver: Increased attenuation, decreased visualization of vessels suggestive of fatty infiltrate Gallbladder: 2 no mobile polyps seen. Evidence for sonographic Hewitt's sign: no CBD: wnl Right Kidney: No hydronephrosis or masses seen The visualized portions of the pancreas unremarkable. The tail is obscured by overlying bowel gas. Di ffuse increased attenuation of the liver without focal lesion. Noncirrhotic morphology. No shadowing gallstones. There are 2 echogenic nonmobile polyps identified measuring up to 5 mm. No wall thickenin g. Negative sonographic Hewitt's sign. Common bile duct is within normal limits. Right kidney demonst rates no hydronephrosis, shadowing calculus or solid mass. IMPRESSION: 1. No ultrasound evidence for acute process. 2. Hepatic steatosis. 3. Couple of gallbladder polyps measuring up to 5 mm. These are stable from 2022 ultrasound. [facility], , 10/04/2024 8:32 AM
== END | disposition home or self-care (01) ==
LOC: RADUSWWP 07:59
PROVIDERS: ATTEND Family Medicine
DX: K82.4 Cholesterolosis of gallbladder (principal); K76.0 Fatty (change of) liver, not elsewhere classified
CPT/HCPCS: 76705

== ENCOUNTER 2024-10-21 15:00 | Emergency (ER) | payer OTHER ==
[2024-10-21 15:08] VITALS: RESP 18
[2024-10-21] MEDS: ONDANSETRON 4 MG/2 ML VIAL IVP STA (16:07)
[2024-10-21] MEDS: IBUPROFEN 800 MG TAB PO STA (16:07)
[2024-10-21] MEDS: SODIUM CHLORIDE 0.9% 1,000 ML IV ONE (16:07)
[2024-10-21] MEDS: ACETAMINOPHEN TAB 500 MG TAB PO STA (16:08)
[2024-10-21 16:10] LABS: Basophils # (A) 0.04 10*3/uL (0.00-0.10); Basophils % (A) 0.5 %; Eosinophils # (A) 0.09 10*3/uL (0.04-0.35); Eosinophils % (A) 1.1 %; HCT 46.1 % (39.6-50.0); HGB 15.8 g/dL (13.0-17.0); Lymphocytes # (A) 1.11 10*3/uL (0.90-5.00); Lymphocytes % (A) 13.2 %; MCHC 34.3 g/dL (32.0-37.0); MCV 84.7 fL (80.0-97.0); Mean Platelet Volume 9.9 fL (9.5-12.2); Monocytes # (A) 0.74 10*3/uL (0.20-1.00); Monocytes % (A) 8.8 %; Neutrophils # (A) 6.41 10*3/uL (1.80-7.70); Platelet Count 231 10*3/uL (140-440); RBC 5.44 10*6/uL (4.40-5.60); RDW 12.1 % (11.5-14.5); WBC 8.42 10*3/uL (4.50-10.00)
[2024-10-21 16:38] LABS: ALT 129 U/L (4-49); AST 45 U/L (17-59); African American GFR (CKD) >90 (>60 ml/min/1.73 sqM); Albumin 4.6 g/dL (3.5-5.0); Alkaline Phosphatase 109 U/L (38-126); Anion Gap 11 mmol/L; Blood Urea Nitrogen 11 mg/dL (9-20); Calcium 9.9 mg/dL (8.4-10.2); Carbon Dioxide 28 mmol/L (22-30); Chloride 100 mmol/L (98-107); Glucose 118 mg/dL (74-99); Non-African American GFR(CKD) >90 (>60 ml/min/1.73 sqM); Potassium 4.4 mmol/L (3.5-5.1); Sodium 139 mmol/L (137-145); Total Bilirubin 1.2 mg/dL (0.2-1.3); Total Protein 7.4 g/dL (6.3-8.2)
[2024-10-21 16:46] LABS: Influenza A Not Detected (Not Detectd); Influenza B Not Detected (Not Detectd); RSV Not Detected (Not Detectd)
--- NOTE | 2024-10-21 16:48 | XR ---
EXAMINATION TYPE: XR chest 2V DATE OF EXAM: 10/21/2024 4:30 PM COMPARISON: Chest radiographs from 07/22/2014. CLINICAL INDICATION: Male, 29 years old with history of cough, congestion; [facility] TECHNIQUE: XR chest 2V Frontal and lateral views of the chest. FINDINGS: Lungs/Pleura: There is no evidence of pleural effusion, focal consolidation, or pneumothorax. Pulmonary vascularity: Unremarkable. Heart/mediastinum: Cardiomediastinal silhouette is unremarkable. Musculoskeletal: No acute osseous pathology. IMPRESSION: No acute cardiopulmonary disease/process. [facility], , 10/21/2024 4:46 PM
--- NOTE | 2024-10-21 18:01 | ED ---
General Adult HPI - General Chief complaint: Nausea/Vomiting/Diarrhea Stated complaint: cough, NVD Time Seen by Provider: 10/21/24 15:40 Source: patient, RN notes reviewed, old records reviewed Mode of arrival: ambulatory Limitations: no limitations - History of Present Illness Initial comments: Patient is a 29-year-old male presents emergency department for URI symptoms. Patient also had an episode of posttussive emesis prior to arrival. Also endorses some diarrhea today. Symptoms have been ongoing for a few days, mostly URI symptoms. Patient is also complaining of bodyaches, sore throat. Also mild headache. Positive sick contact that has RSV. Denies any abdominal surgeries. Denies any abdominal pain. Has no other acute complaints at this time. - Related Data Previous Rx's Medication Instructions Recorded DULoxetine HCL [Cymbalta] 60 mg PO HS 30 Days #30 cap 11/25/22 traZODone HCL [Desyrel] 100 mg PO HS 30 Days #30 tab 11/25/22 Allergies Allergy/AdvReac Type Severity Reaction Status Date / Time No Known Allergies Allergy Verified 01/21/23 00:35 Review of Systems ROS Statement: Those systems with pertinent positive or pertinent negative responses have been documented in the HPI. Review of Systems: CONST: Endorses fever EYES: Denies blurry vision ENT: Endorses nasal congestion C/V: Denies Chest pain RESP: Denies shortness of breath GI: Denies abdominal pain : Denies dysuria SKIN: Denies rash. MSK: Denies joint pain. NEURO: Denies headache ROS Other: All systems not noted in ROS Statement are negative. Past Medical History Past Medical History: Seizure Disorder Additional Past Medical History / Comment(s): seizure at only/ hearing impaired both ears See Dr Marquez H&P for cardiac hx History of Any Multi-Drug Resistant Organisms: None Reported Past Surgical History: Ear Surgery Past Anesthesia/Blood Transfusion Reactions: No Reported Reaction Past Psychological History: Anxiety, Depression Smoking Status: Never smoker Past Alcohol Use History: None Reported Past Drug Use History: None Reported - Past Family History Mother Family Medical History: No Reported History General Exam - General Exam Comments Initial Comments: General: Appears in no acute distress. Febrile HEAD: Normal with no signs of head trauma. EYES: EOMI ENT: Hearing grossly intact, normal oropharynx. RESPIRATORY: Clear breath sounds bilaterally. No wheezes, rales, or rhonchi. No hypoxia. No increased work of breathing. C/V: Regular rate and rhythm. S1 and S2 auscultated, peripheral pulses 2+ and intact throughout ABD: Abd is soft, nontender, nondistended EXT: No obvious deformity SKIN: No rashes or lesions observed on exposed skin. NEURO: Alert and oriented x 4 Limitations: no limitations Course Vital Signs 10/21/24 10/21/24 10/21/24 15:04 17:14 18:12 Temperature 100.1 F H 101.2 F H 99.8 F H Pulse Rate 128 H 103 H 98 Respiratory 18 18 18 Rate Blood Pressure 133/84 118/76 115/77 O2 Sat by Pulse 95 95 96 Oximetry Medical Decision Making - Medical Decision Making Was pt. sent in by a medical professional or institution (, PA, SPORTS EQUIPMENT SUPERVISOR, urgent care, hospital, or residential...) When possible be specific @ -No Did you speak to anyone other than the patient for history (EMS, parent, family, police, friend...)? What history was obtained from this source @ -No Did you review nursing and triage notes (agree or disagree)? Why? @ -I reviewed and agree with nursing and triage notes Were old charts reviewed (outside hosp., previous admission, EMS record, old EKG, old radiological studies, urgent care reports/EKG's, residential records)? Report findings @ -No old charts were reviewed Differential Diagnosis (chest pain, altered mental status, abdominal pain women, abdominal pain men, vaginal bleeding, weakness, fever, dyspnea, syncope, headache, dizziness, GI bleed, back pain, seizure, CVA, palpatations, mental health, musculoskeletal)? @ -Viral syndrome, dehydration, pneumonia, COVID, flu. This list is not all inclusive. EKG interpreted by me (3pts min.). @ -As above X-rays interpreted by me (1pt min.). @ -X-ray reveals no obvious acute cardiopulmonary process CT interpreted by me (1pt min.). @ -None done U/S interpreted by me (1pt. min.). @ -None done What testing was considered but not performed or refused? (CT, X-rays, U/S, labs)? Why? @ -None What meds were considered but not given or refused? Why? @ -None Did you discuss the management of the patient with other professionals (professionals i.e. , PA, SPORTS EQUIPMENT SUPERVISOR, lab, RT, psych nurse, social media marketing analyst, turning and beading machine operator, teacher, aviation tactical readiness officer, window caser)? Give summary @ -No Was smoking cessation discussed for >3mins.? @ -No Was critical care preformed (if so, how long)? @ -No Were there social determinants of health that impacted care today? How? (Homelessness, low income, unemployed, alcoholism, drug addiction, transportation, low edu. Level, literacy, decrease access to med. care, custodial, r ehab)? @ -No Was there de-escalation of care discussed even if they declined (Discuss DNR or withdrawal of care, Hospice)? DNR status @ -No What co-morbidities impacted this encounter? (DM, HTN, Smoking, COPD, CAD, Cancer, CVA, ARF, Chemo, Hep., AIDS, mental health diagnosis, sleep apnea, morbid obesity)? @ -None Was patient admitted / discharged? Hospital course, mention meds given and route, prescriptions, significant lab abnormalities, going to OR and other pertinent info. @ -Patient presents to the emergency department for URI symptoms with what sounds like posttussive emesis as well as 1 episode of diarrhea. Appears mildly dehydrated. Is febrile. Patient will be administered IV fluids as well as IV Zofran in addition to Motrin and Tylenol. We will obtain basic labs as well as viral swabs and strep swab and chest x-ray. He was in agreement with this plan. Chest x-ray shows no obvious acute cardiopulmonary process. Labs are unremarkable including negative viral swabs and strep swab. On reevaluation, fevers improved. He is feeling improved. Discussed the results with him. He will be discharged home at this time. Encouraged continued symptomatic care including Tylenol and Motrin as needed for fevers and bodyaches.. No indication for antibiotic use at this time as it is likely a viral illness. He was in agreement this plan. I will provide the patient with a prescription for starter pack of Zofran. I instructed the patient to follow up with their PCP in the next 1-3 days.. I explained that the patient should return to the emergency department if they experience any worsening symptoms. Strict return precautions were discussed with the patient. The patient expressed understanding of these instructions. I answered all questions that the patient had. The patient was discharged home in good condition with their prescriptions and follow up information. Undiagnosed new problem with uncertain prognosis? @ -No Drug Therapy requiring intensive monitoring for toxicity (Heparin, Nitro, Insulin, Cardizem)? @ -No Were any procedures done? @ -No Diagnosis/symptom? @ -Viral syndrome, URI Acute, or Chronic, or Acute on Chronic? @ -Acute Uncomplicated (without systemic symptoms) or Complicated (systemic symptoms)? @ -Uncomplicated Side effects of treatment? @ -No Exacerbation, Progression, or Severe Exacerbation? @ -No Poses a threat to life or bodily function? How? (Chest pain, [place], [place], pneumonia, PE, COPD, DKA, ARF, appy, cholecystitis, CVA, Diverticulitis, Homicidal, Suicidal, threat to staff... and all critical care pts) @ -Unlikely at this time - Lab Data Result diagrams: 10/21/24 16:02 10/21/24 16:09 Lab Results 10/21/24 10/21/24 10/21/24 Range/Units 16:02 16:09 16:09 WBC 8.42 (4.50-10.00) 10*3/uL RBC 5.44 (4.40-5.60) 10*6/uL Hgb 15.8 (13.0-17.0) g/dL Hct 46.1 (39.6-50.0) % MCV 84.7 (80.0-97.0) fL MCH 29.0 (27.0-32.0) pg MCHC 34.3 (32.0-37.0) g/dL Plt Count 231 (140-440) 10*3/uL MPV 9.9 (9.5-12.2) fL Immature Gran % (Auto) 0.4 % Neutrophils % 76.0 % Lymphocytes % 13.2 % Monocytes % 8.8 % Eosinophils % 1.1 % Basophils % 0.5 % Immature Gran # 0.03 (0.00-0.04) 10*3/uL Neutrophils # 6.41 (1.80-7.70) 10*3/uL Lymphocytes # 1.11 (0.90-5.00) 10*3/uL Monocytes # 0.74 (0.20-1.00) 10*3/uL Eosinophils # 0.09 (0.04-0.35) 10*3/uL Basophils # 0.04 (0.00-0.10) 10*3/uL Sodium 139 (137-145) mmol/L Potassium 4.4 (3.5-5.1) mmol/L Chloride 100 (98-107) mmol/L Carbon Dioxide 28 (22-30) mmol/L Anion Gap 11 mmol/L BUN 11 (9-20) mg/dL Creatinine 1.06 (0.66-1.25) mg/dL Est GFR (CKD-EPI)AfAm >90 (>60 ml/min/1.73 sqM) Est GFR (CKD-EPI)NonAf >90 (>60 ml/min/1.73 sqM) Glucose 118 H (74-99) mg/dL Calcium 9.9 (8.4-10.2) mg/dL Total Bilirubin 1.2 (0.2-1.3) mg/dL AST 45 (17-59) U/L ALT 129 H (4-49) U/L Alkaline Phosphatase 109 (38-126) U/L Total Protein 7.4 (6.3-8.2) g/dL Albumin 4.6 (3.5-5.0) g/dL Influenza Type A (PCR) (Not Detectd) Influenza Type B (PCR) (Not Detectd) RSV (PCR) (Not Detectd) SARS-CoV-2 (PCR) (Not Detectd) Group A Strep (PCR) NOT DETECTED (Not Detectd) 10/21/24 Range/Units 16:09 WBC (4.50-10.00) 10*3/uL RBC (4.40-5.60) 10*6/uL Hgb (13.0-17.0) g/dL Hct (39.6-50.0) % MCV (80.0-97.0) fL MCH (27.0-32.0) pg MCHC (32.0-37.0) g/dL Plt Count (140-440) 10*3/uL MPV (9.5-12.2) fL Immature Gran % (Auto) % Neutrophils % % Lymphocytes % % Monocytes % % Eosinophils % % Basophils % % Immature Gran # (0.00-0.04) 10*3/uL Neutrophils # (1.80-7.70) 10*3/uL Lymphocytes # (0.90-5.00) 10*3/uL Monocytes # (0.20-1.00) 10*3/uL Eosinophils # (0.04-0.35) 10*3/uL Basophils # (0.00-0.10) 10*3/uL Sodium (137-145) mmol/L Potassium (3.5-5.1) mmol/L Chloride (98-107) mmol/L Carbon Dioxide (22-30) mmol/L Anion Gap mmol/L BUN (9-20) mg/dL Creatinine (0.66-1.25) mg/dL Est GFR (CKD-EPI)AfAm (>60 ml/min/1.73 sqM) Est GFR (CKD-EPI)NonAf (>60 ml/min/1.73 sqM) Glucose (74-99) mg/dL Calcium (8.4-10.2) mg/dL Total Bilirubin (0.2-1.3) mg/dL AST (17-59) U/L ALT (4-49) U/L Alkaline Phosphatase (38-126) U/L Total Protein (6.3-8.2) g/dL Albumin (3.5-5.0) g/dL Influenza Type A (PCR) Not Detected (Not Detectd) Influenza Type B (PCR) Not Detected (Not Detectd) RSV (PCR) Not Detected (Not Detectd) SARS-CoV-2 (PCR) Not Detected (Not Detectd) Group A Strep (PCR) (Not Detectd) Disposition Clinical Impression: Viral syndrome, URI (upper respiratory infection) Disposition: HOME SELF-CARE Condition: Good Instructions (If sedation given, give patient instructions): Viral Syndrome (ED) Is patient prescribed a controlled substance at d/c from ED?: No Referrals: Rodrick Day DO [Primary Care Provider] - 1-2 days Time of Disposition: 18:00
[2024-10-21] MEDS: ONDANSETRON 4 MG ODT STARTER PACK 2 TAB BTL PO STA (18:08)
[2024-10-21 18:14] VITALS: BP 115/77; PULSE 98; TEMP 99.8
== END 2024-10-21 18:13 | disposition home or self-care (01) ==
LOC: EC 15:00
DX: J06.9 Acute upper respiratory infection, unspecified (principal)
CPT/HCPCS: 36415; 87651; 80053; 85025; 87636; 71046; 99284; 96374; 96361 ×2; J2405; S0119